=== PATIENT | female | born 1980 | race Hispanic/Latino ===

== ENCOUNTER 2020-09-14 10:43 | Outpatient (CLI) | payer OTHER | END 2020-09-14 10:44 | disposition home or self-care (01) | LOC: CSHCT 10:43 | PROVIDERS: ATTEND Urology | DX: N20.0 Calculus of kidney (principal); R10.9 Unspecified abdominal pain; R93.421 Abnormal radiologic findings on diagnostic imaging of right kidney | CPT/HCPCS: 74176 ==